=== PATIENT | male | born 1995 | race Asian ===

== ENCOUNTER 2017-03-21 12:39 | Emergency (ER) | payer MEDICAID ==
[2017-03-21 17:44] VITALS: BP 140/81
== END 2017-03-21 17:44 | disposition home or self-care (01) ==
LOC: ED 12:39
DX: S00.83XA Contusion of other part of head, initial encounter (principal); R68.84 Jaw pain; W50.0XXA Accidental hit or strike by another person, initial encounter; Y93.89 Activity, other specified; Y99.8 Other external cause status; Y92.89 Other specified places as the place of occurrence of the external cause